=== PATIENT | male | born 1940 | race Caucasian/White ===

== ENCOUNTER 2019-05-26 06:31 | Outpatient (CLI) | payer MEDICARE ==
[2019-05-26 10:38] LABS: Hemoglobin 14.3 g/dL (14.0-18.0); Mean Corpuscular HGB CONC 33.7 g/dL (32.0-36.0); Mean Corpuscular Hemoglobin 32.6 pg (27.0-31.0); Mean Platelet Volume 7.3 fL (7.4-10.4); Platelet Count 181 thou/uL (130-400); RBC Distribution Width 12.3 % (11.5-14.5); White Blood Cell (WBC) Count 6.7 thou/uL (4.8-10.8)
[2019-05-26 10:44] LABS: PTT 38.3 SEC (22.9-36.1); Prothrombin Time 13.3 SEC (12.0-14.7)
[2019-05-26 10:46] LABS: Bacteria/HPF None Seen HPF (None Seen); Bilirubin Negative (Negative); Blood, Urine Negative (Negative); Clarity Clear (Clear); Glucose, Urine (Dipstick) Normal (Negative); Leukocyte Negative Leu/uL (Negative); Nitrite Negative (Negative); Protein, Urine (Dipstick) Negative (Neg-Trace); RBC/HPF 0-3 HPF (0-3); Squamous Epithelial None Seen HPF (0-3); Urobilinogen Normal mg/dL (Less than 2); WBC/HPF 0-3 HPF (0-3)
[2019-05-26 10:58] LABS: Anion Gap 9 mmol/L (10-20); BUN (Urea Nitrogen) 19 mg/dL (8.4-25.7); Calc. Creatinine Clearance 0 mL/min (70-130); Calcium 9.4 mg/dL (7.8-10.44); Carbon Dioxide 30 mmol/L (23-31); Chloride 105 mmol/L (98-107); Estimated GFR-MDRD 86; Glucose 95 mg/dL (83-110); Potassium 3.8 mmol/L (3.5-5.1); Sodium 140 mmol/L (136-145)
== END 2019-05-26 06:32 | disposition home or self-care (01) ==
LOC: LABBT 06:31
PROVIDERS: ATTEND Urology
DX: Z01.818 Encounter for other preprocedural examination (principal); N40.0 Benign prostatic hyperplasia without lower urinary tract symptoms
CPT/HCPCS: 80048; 81001; 85027; 85610; 85730; 87086; 93005; 93010

== ENCOUNTER 2019-06-02 07:15 | Day surgery (SDC) | payer MEDICARE ==
[2019-05-26 09:29] VITALS: BMI 24.7
[2019-06-02] MEDS ORDERED: Levofloxacin 500 mg/D5W 100 ml Premix Bag ONE (08:08)
[2019-06-02] MEDS ORDERED: Fentanyl 100 MCG/2 ML VIAL ONE (09:08)
[2019-06-02] MEDS ORDERED: Oxybutynin 5 MG TAB ONE (11:15)
[2019-06-02] MEDS ORDERED: Ketorolac Tromethamine 30 MG/ML VIAL ONE (11:15)
[2019-06-02] MEDS ORDERED: Phenazopyridine HCl 97.5 MG TABLET ONE (11:15)
--- NOTE | 2019-06-02 12:17 | OP ---
DATE OF PROCEDURE: 06/02/2019 PREOPERATIVE DIAGNOSIS: Enlarged prostate with lower urinary tract symptoms. POSTOPERATIVE DIAGNOSIS: Enlarged prostate with lower urinary tract symptoms. PROCEDURE PERFORMED: Transurethral prostatic lift device/UroLift. ANESTHESIA: TIVA. COMPLICATIONS: None. ESTIMATED BLOOD LOSS: 20 mL. DESCRIPTION OF PROCEDURE: After informed consent, the patient was taken to the operating room, transferred to the table on his own power. Anesthesia was established. A time-out was performed showing the correct patient, site, and procedure. Preoperative antibiotics were administered. He was prepped and draped in lithotomy position. A 20-[place] cystoscope was inserted into the bladder. The cystoscopy bridges were placed with UroLift delivery device. The first treatment site was the patient's left side approximately 2 cm distal to the bladder neck. The distal tip of the delivery device was then angled laterally approximately 20 degrees of this position to compress the lateral lobe. The trigger was pulled, thereby deploying a needle containing the implant through the prostate. The needle was then retracted, allowing one end of the implant to be delivered to the capsular surface of the prostate. The implant was intention to assure capsular seeding and removal of slack monofilament. The device was then angled back towards midline and slowly advanced proximally about 3 to 4 mm until cystoscopic verification of the monofilament being centered in the delivery bay. The urethral end piece was then affixed to the monofilament, thereby tailoring the size of the implant. Excess filament was then severed. The delivery device was then readvanced into the bladder. The delivery device was then replaced with the cystoscope and bridge and implant location and opening affect was confirmed cystoscopically. The same procedure was then repeated on the other side near the bladder neck deploying the second implant, two additional implants, the 3rd and 4th were delivered just proximal to the verumontanum. Again, one on the right and one on the left side of the prostate following the same technique. Cystoscopy then revealed possible persistent obstruction at the bladder neck. A 5th implant was delivered on the patient's left side, attempting to stack above the previously placed bladder neck implant on that side. Upon delivering the urethral end piece, I noted that this was within the bladder neck rather than distal to it. I then switched to a 23-[place]inean cystoscope and using a flexible grasper, removed this urethral end piece. I noted that the monofilament invaginated into the tissue and was no longer visible. I then re-examined the channel and decided at this point that no further implants were necessary. He had an excellent anterior channel with the irrigation turned off. The bladder was partially filled and then the scope removed. He was awoken from anesthesia, transferred back to his hospital bed and taken to PACU in stable condition. IMPLANT LOCATION SUMMARY: 1. Implant 1: Left proximal prostatic urethra. 2. Implant 2: Right proximal prostatic urethra. 3. Implant 3: Distal left prostatic urethra. 4. Implant 4: Right distal prostatic urethra. 5. Implant 5: Left proximal prostatic urethra/bladder neck. This implant was removed. CRITERIA: Met. The patient with no active UTI. Conservative management has failed and surgical intervention is indicated. IPSS 16/5, PVR 88. Job ID: [id number]
== END 2019-06-02 12:20 | disposition home or self-care (01) ==
LOC: SDC 07:15
PROVIDERS: ATTEND Urology
PROC: 0T7D8DZ Dilation of Urethra with Intraluminal Device, Via Natural or Artificial Opening Endoscopic (ICD-10-PCS; principal; 2019-06-02)
DX: N40.1 Benign prostatic hyperplasia with lower urinary tract symptoms (principal); E78.5 Hyperlipidemia, unspecified; N13.8 Other obstructive and reflux uropathy; I69.328 Other speech and language deficits following cerebral infarction; I25.10 Atherosclerotic heart disease of native coronary artery without angina pectoris; Z87.891 Personal history of nicotine dependence; Z95.5 Presence of coronary angioplasty implant and graft; Z79.82 Long term (current) use of aspirin; Z79.899 Other long term (current) drug therapy
CPT/HCPCS: C1889; J1885; J1956; J3010

== ENCOUNTER 2019-06-05 09:10 | Inpatient (IN) | payer MEDICARE ==
[2019-06-05 09:46] LABS: #Eosinphils 0.1 thou/uL (0.0-0.7); #Lymphocytes 0.9 thou/uL (1.20-3.40); #Monocytes 0.9 thou/uL (0.11-0.59); #Neutrophils 9.1 thou/uL (1.40-6.50); %Basophils 0.1 % (0.0-1.0); %Eosinophils 0.8 % (0.0-10.0); %Lymphocytes 7.8 % (21.0-51.0); %Monocytes 8.4 % (0.0-10.0); Hemoglobin 12.1 g/dL (14.0-18.0); Mean Corpuscular Hemoglobin 32.8 pg (27.0-31.0); Mean Corpuscular Volume 93.6 fL (78.0-98.0); Mean Platelet Volume 7.5 fL (7.4-10.4); Platelet Count 151 thou/uL (130-400); RBC Distribution Width 11.9 % (11.5-14.5); Red Blood Cell (RBC) Count 3.68 mill/uL (4.70-6.10); White Blood Cell (WBC) Count 10.9 thou/uL (4.8-10.8)
--- NOTE | 2019-06-05 09:59 | CT ---
CT BRAIN WITHOUT CONTRAST: Date: 06/05/19 HISTORY: Level I stroke. FINDINGS: Postop changes of bilateral parietal bur holes are again seen as on 01/01/17. There is an old infarct in the left basal ganglia. Changes of chronic small vessel ischemic disease in the periventricular w nany matter. The ventricular size is appropriate and the basilar cisterns are patent. No evidence of acute infarct, hemorrhage, midline shift, or abnormal extra-axial fluid collections ar e seen. No acute calvarial fracture is identified. The visualized paranasal sinuses and mastoid air c ells are well aerated. IMPRESSION: No CT evidence of acute intracranial process. Discussed over the telephone with ER physician, Dr. Lucian Pepper, at 0922 hours. CODE CR. POS: TPC
[2019-06-05 10:01] LABS: ALT (SGPT) 21 U/L (8-55); AST (SGOT) 55 U/L (5-34); Albumin 4.2 g/dL (3.4-4.8); Alkaline Phosphatase 64 U/L (40-110); Anion Gap 13 mmol/L (10-20); BUN (Urea Nitrogen) 37 mg/dL (8.4-25.7); Bilirubin, Total 0.9 mg/dL (0.2-1.2); CK (CPK) 1253 U/L (30-200); Calc. Creatinine Clearance 0 mL/min (70-130); Calcium 8.9 mg/dL (7.8-10.44); Carbon Dioxide 24 mmol/L (23-31); Chloride 93 mmol/L (98-107); Estimated GFR-MDRD 21; Globulin 2.4 g/dL (2.4-3.5); Glucose 128 mg/dL (83-110); Protein, Total 6.6 g/dL (5.8-8.1); Sodium 126 mmol/L (136-145)
--- NOTE | 2019-06-05 10:01 | CT ---
EXAM: CT angiogram of the head including 3-D rendering: HISTORY: Stroke alert COMPARISON: None FINDINGS: There is adequate opacification of the intracranial arteries. Visualized vertebral and basilar arteries: Unremarkable. Right and left intracranial internal carotid arteries: Unremarkable. Right and left Anterior and posterior cerebral arteries: Unremarkable. Right and left middle cerebral arteries: Unremarkable. No evidence for an M1 segment occlusion. No evidence for intracranial aneurysm. IMPRESSION: No significant major branch occlusion or stenosis. No evidence for intracranial aneurysm. EXAM: CT angiogram of the neck including 3-D rendering: HISTORY: Stroke alert COMPARISON: None FINDINGS: There is adequate opacification of the extracranial arterial tree. The origins of the right and left carotid and vertebral arteries demonstrate no significant stenosis. Right common, internal, and external carotid arteries:No evidence for significant stenosis or occlusi ve disease. Left common, internal, and external carotid arteries:There is some very mild narrowing of the upper i nternal carotid artery just caudal to the petrous bone. Right and left vertebral arteries and basilar artery:No significant stenosis or occlusion. Soft tissue neck demonstrates no evidence for significant adenopathy, mass, or abnormal fluid collect ion. IMPRESSION: No significant carotid, vertebral, or basilar artery stenosis or occlusive disease or other significa nt acute process. Findings were discussed with Dr. Pepper's nurse at 9:55 AM CODE CR
[2019-06-05 10:08] LABS: Bacteria/HPF 2+ HPF (None Seen); Bilirubin Negative (Negative); Blood, Urine 3+ (Negative); Clarity Turbid (Clear); Glucose, Urine (Dipstick) Normal (Negative); Leukocyte Negative Leu/uL (Negative); Nitrite Negative (Negative); Protein, Urine (Dipstick) 30 mg/dL (Neg-Trace); RBC/HPF Greater than 50 HPF (0-3); Squamous Epithelial 0-3 HPF (0-3); Urobilinogen Normal mg/dL (Less than 2); WBC/HPF 21-50 HPF (0-3)
--- NOTE | 2019-06-05 11:22 | RAD ---
PORTABLE CHEST 1 VIEW: Date: 06/05/19 Time: 1018 hours HISTORY: Altered mental status. FINDINGS: The heart size is normal. The lungs are well expanded without lobar consolidation, pneumothoraces, or pleural effusions. IMPRESSION: No acute process. POS: TPC
[2019-06-05] MEDS ORDERED: Iopamidol-370 76% 500 ML 1 ML ONE (11:37)
[2019-06-05 13:56] VITALS: BMI 26.5
[2019-06-05] MEDS ORDERED: Acetaminophen 325 MG TAB PO PRN (14:02)
[2019-06-05] MEDS ORDERED: Senokot S 8.6-50 MG TAB PO PRN (14:02)
[2019-06-05] MEDS ORDERED: Ondansetron PF 4 MG/2 ML Vial IVP PRN (14:02)
--- NOTE | 2019-06-05 15:55 | MRI ---
Brain MRI without contrast: 06/05/2019 COMPARISON: None HISTORY: Disorientation, altered mental status TECHNIQUE: Multiplanar multisequence MR imaging of the brain obtained without contrast. FINDINGS: There is subtle linear blooming artifact associated with the cortical surface of the anteri or aspect right frontal lobe suggesting the sequela of prior subdural hematoma. Head CT performed in 2017 demonstrated a subdural hematoma in this region. There is evidence of bilateral frontal ginger holes near the vertex. The diffusion weighted imaging demonstrates no evidence for acute infarction. Imaged paranasal sinuses and mastoid air cells are grossly unremarkable. Arterial flow voids at the a xial level of the skull base appear grossly unremarkable on the T2-weighted imaging. Multifocal periventricular, deep, and subcortical white matter T2 and FLAIR hyperintensity noted, zuly dence of small vessel disease. IMPRESSION: Chronic findings as above. No MR evidence of acute infarction.
[2019-06-05] MEDS: Sodium Chloride 0.9% 1,000 ML IV SCH (17:02)
[2019-06-05] MEDS: Heparin 5,000 UNITS/ML VIAL SC SCH ×2 (17:02→20:58)
[2019-06-05] MEDS: cefTRIAXone\\ROCEPHIN 1 GM in Sodium Chloride 0.9% 100 ML IVPB SCH (17:37)
--- NOTE | 2019-06-05 20:32 | HP ---
PRESENTING COMPLAINT: Confusion. HISTORY OF PRESENT ILLNESS: The patient with past medical history of benign prostatic hypertrophy, history of CVA with left putaminal ischemic stroke, coronary artery disease status post stenting, history of renal artery stenosis status post stenting, hyperlipidemia, history of subdural hematoma. The patient is status post transurethral prostatic lift device, UroLift performed on 06/02/2019, and the patient presented today this morning, as per , the patient was confused and was not able to read words and these were the symptoms which he had before previous stroke and he was getting off-balance and was holding to gerardo and she denied any focal weakness, denied any slurred speech or headache, and she suspected that the patient maybe got stroke. Denies any chest pain or shortness of breath. The patient complains of increased frequency of urination, which got after UroLift procedure. The patient also found to be having increased creatinine, being admitted for possible acute kidney injury, mild UTI, and possible TIA/stroke workup. Initial CAT scan performed in the emergency room was negative. SYSTEMIC REVIEW: As mentioned above. PAST MEDICAL HISTORY: As mentioned above. PAST SURGICAL HISTORY: 1. History of UroLift procedure on 06/02/2019. 2. History of LASIK in 1994. 3. Elbow surgery. 4. Coronary stent placement. 5. Renal artery stenosis, stent placement. FAMILY HISTORY: Diabetes mellitus and coronary artery disease. SOCIAL HISTORY: Denies smoking, alcohol abuse, or drug abuse. ALLERGIES: NKDA. MEDICATION LIST: Aspirin and other medications. PHYSICAL EXAMINATION: VITAL SIGNS: Temperature 97.7, pulse 66, respiration 20, oxygen saturation 98%. Blood pressure 159/72. GENERAL: The patient is lying in bed comfortably, not in distress. HEENT: Conjunctivae are normal. Oral mucosa moist. NECK: Supple. No JVD. No lymphadenopathy. CHEST: Normal work of breathing. No rhonchi. No wheezing. HEART: Sound normal. No murmur. No gallop or rub. ABDOMEN: Soft, benign, nontender. No visceromegaly. EXTREMITIES: Negative edema of feet. No rash. No cyanosis. NEUROLOGIC: Cranial nerve grossly intact. Power 5/5 in bilateral upper and lower extremities. Coordination intact. LABORATORY DATA: CBC unremarkable. BMP unremarkable except sodium of 126, creatinine 2.87, glucose 128. CPK 1253, troponin 0.017. TSH 1.3520. UA; white blood cells 21 to 50, urine rbc's greater than 50. CT [place], negative. Brain CT, negative for acute findings. X-ray chest, no acute process. IMPRESSION: 1. Confusion with off-balance and word reading difficulty. We will admit to rule out transient ischemic attack versus stroke. We will get an MRI brain. Tele monitoring, neuro checks. We will get a Speech PT, OT evaluation. We will continue aspirin, which he takes at home. If MRI is positive, we will get Neurology evaluation. 2. Acute encephalopathy, possible multifactorial, possible related to acute renal failure with hyponatremia and possible mild urinary tract infection. We will continue to monitor mental status. As per , the patient is more confused than usual. 3. Acute kidney injury. The patient has performed UroLift procedure on 06/02/[address] Barnes has been consulted from the ED physician, who requested followup. We will continue to monitor BMP. If the patient has worsening kidney functions, we will get Nephrology evaluation. 4. Hyponatremia. We will continue fluid monitoring in the morning. 5. History of coronary artery disease. Currently denies any chest pain. Continue home medication. 6. History of renal artery stenosis. 7. Advanced directive discussed with the patient and . The patient is a full code. Job ID: [id number]
[2019-06-05] MEDS: Famotidine 20 MG TAB PO SCH (20:58)
[2019-06-06] MEDS: Sodium Chloride 0.9% 1,000 ML IV SCH ×2 (04:23→14:03)
[2019-06-06 05:15] LABS: #Eosinphils 0.1 thou/uL (0.0-0.7); #Lymphocytes 0.9 thou/uL (1.20-3.40); #Monocytes 0.6 thou/uL (0.11-0.59); #Neutrophils 4.3 thou/uL (1.40-6.50); %Basophils 0.5 % (0.0-1.0); %Eosinophils 1.4 % (0.0-10.0); %Lymphocytes 14.5 % (21.0-51.0); %Monocytes 10.6 % (0.0-10.0); %Neutrophils 73.1 % (42.0-75.0); Hemoglobin 10.2 g/dL (14.0-18.0); Mean Corpuscular HGB CONC 34.8 g/dL (32.0-36.0); Mean Platelet Volume 7.4 fL (7.4-10.4); Platelet Count 130 thou/uL (130-400); Red Blood Cell (RBC) Count 3.08 mill/uL (4.70-6.10); White Blood Cell (WBC) Count 5.9 thou/uL (4.8-10.8)
[2019-06-06 05:37] LABS: ALT (SGPT) 17 U/L (8-55); AST (SGOT) 45 U/L (5-34); Albumin 3.3 g/dL (3.4-4.8); Alkaline Phosphatase 51 U/L (40-110); Anion Gap 9 mmol/L (10-20); BUN (Urea Nitrogen) 22 mg/dL (8.4-25.7); Bilirubin, Total 0.5 mg/dL (0.2-1.2); Calc. Creatinine Clearance 48 mL/min (70-130); Calcium 8.2 mg/dL (7.8-10.44); Carbon Dioxide 26 mmol/L (23-31); Cardiac Risk 2.1 (Less than 4.5); Chloride 107 mmol/L (98-107); Cholesterol 104 mg/dl (< 200 Desired); Estimated GFR-MDRD 50; Glucose 90 mg/dL (83-110); HDL Cholesterol 50 mg/dL (>60 Neg Risk); LDL Cholesterol, Calculated 43 mg/dL; Potassium 3.7 mmol/L (3.5-5.1); Protein, Total 5.3 g/dL (5.8-8.1); Sodium 138 mmol/L (136-145); Triglycerides 55 mg/dL (Less than 150)
[2019-06-06] MEDS: Aspirin 81 mg Enteric Coated Tablet PO SCH (08:29)
[2019-06-06] MEDS: Heparin 5,000 UNITS/ML VIAL SC SCH ×3 (08:29→20:57)
[2019-06-06] MEDS ORDERED: traMADol HCl 50 MG TAB PO PRN (12:47)
--- NOTE | 2019-06-06 12:50 | PDOC.HOSPP ---
- Subjective Encounter Date: 06/06/19 Encounter Time: 10:00 Subjective: no sob or abd pain at bedside oriented well has ambulated with PT in hallway - Objective Vital Signs & Weight: Vital Signs (12 hours) Temp Pulse Pulse Pulse Resp BP BP 06/06/19 11:35 99.3 F 54 L 20 06/06/19 10:14 58 L 55 L 124/58 L 128/58 L 06/06/19 08:32 06/06/19 07:18 98.4 F 58 L 20 06/06/19 04:00 97.7 F 63 16 BP Pulse Ox 06/06/19 11:35 116/57 L 99 06/06/19 10:14 06/06/19 08:32 95 06/06/19 07:18 115/53 L 95 06/06/19 04:00 112/54 L 94 L Weight Weight 169 lb 2.994 oz I&O: 06/05/19 06/06/19 06/07/19 06:59 06:59 06:59 Intake Total 800 Output Total 4100 1700 Balance -4100 -900 Result Diagrams: 06/06/19 04:36 06/06/19 04:36 Hospitalist ROS - Medication Medications: Active Medications Generic Name Dose Route Start Last Admin Trade Name Freq PRN Reason Stop Dose Admin Aspirin 81 mg 06/06/19 09:00 06/06/19 08:29 Ecotrin PO 81 mg DAILY MANOJ Administration Famotidine 20 mg 06/05/19 21:00 06/05/19 20:58 Pepcid PO 20 mg HS MANOJ Administration Heparin Sodium (Porcine) 5,000 units 06/05/19 15:00 06/06/19 08:29 Heparin SC Not Given TID MANOJ Sodium Chloride 1,000 mls @ 100 mls/hr 06/05/19 14:15 06/06/19 04:23 Normal Saline 0.9% IV 1,000 mls .Q10H MANOJ Administration Ceftriaxone Sodium 1 gm/ 100 mls @ 200 mls/hr 06/05/19 15:00 06/05/19 17:37 Sodium Chloride IVPB 100 mls 1500 MANOJ Administration - Exam General Appearance: NAD, awake alert Eye: PERRL, anicteric sclera ENT: no oropharyngeal lesions, moist mucosa Neck: supple, no JVD Heart: RRR, no murmur Respiratory: no wheezes, no rales Gastrointestinal: soft, non-tender, non-distended, normal bowel sounds Gastrointestinal - other findings: monge+ dark urine Extremities: no cyanosis, no edema Neurological: cranial nerve grossly intact, no focal deficits Psychiatric: A&O x 3 Hosp A/P (1) Urine retention Code(s): R33.9 - RETENTION OF URINE, UNSPECIFIED Status: Acute (2) [place] (acute kidney injury) Code(s): N17.9 - ACUTE KIDNEY FAILURE, UNSPECIFIED Status: Acute (3) UTI (urinary tract infection) Status: Suspected Qualifiers: Urinary tract infection type: acute cystitis Hematuria presence: without hematuria Qualified Code(s): N30.00 - Acute cystitis without hematuria (4) CAD (coronary artery disease) Code(s): I25.10 - ATHSCL HEART DISEASE OF [place] CORONARY ARTERY W/O ANG PCTRS Status: Chronic Qualifiers: Coronary Disease-Associated Artery/Lesion type: [place] artery [place] vs. transplanted heart: [place] heart Associated angina: without angina Qualified Code(s): I25.10 - Atherosclerotic heart disease of [place] coronary artery without angina pectoris (5) h/o subdural hematoma Status: Chronic (6) H/O: CVA (cerebrovascular accident) Code(s): Z86.73 - PRSNL HX OF TIA (TIA), AND CEREB INFRC W/O RESID DEFICITS Status: Chronic (7) BPH (benign prostatic hyperplasia) Code(s): N40.0 - BENIGN PROSTATIC HYPERPLASIA WITHOUT LOWER URINRY TRACT SYMP Status: Chronic Qualifiers: Lower urinary tract symptom presence: symptoms present Lower urinary tract symptom detail: urinary retention Qualified Code(s): N40.1 - Benign prostatic hyperplasia with lower urinary tract symptoms; R33.8 - Other retention of urine (8) Dyslipidemia Code(s): E78.5 - HYPERLIPIDEMIA, UNSPECIFIED Status: Chronic (9) h/o renal artery stent Status: Chronic (10) Rhabdomyolysis Code(s): M62.82 - RHABDOMYOLYSIS Status: Acute Qualifiers: Rhabdomyolysis type: non-traumatic Qualified Code(s): M62.82 - Rhabdomyolysis (11) Chronic anemia Code(s): D64.9 - ANEMIA, UNSPECIFIED Status: Chronic - Plan gentle iv hydration, renal function is slowly trending down to baseline await cultures had recent urolift procedure done by for BPH on 06/02 with expected mild hematuria continue asp, ceftriaxone, zocor, flomax, oxybutynin has monge cath, likely will go home with it and f/u with as outpt hemostable no signs or symptoms of cva d/w patient and at bedside
[2019-06-06] MEDS: cefTRIAXone\\ROCEPHIN 1 GM in Sodium Chloride 0.9% 100 ML IVPB SCH (14:04)
[2019-06-06] MEDS: Oxybutynin 5 MG TAB PO SCH ×2 (14:04→20:56)
[2019-06-06] MEDS: Famotidine 20 MG TAB PO SCH (20:57)
[2019-06-06] MEDS ORDERED: Atorvastatin Calcium 10 MG TAB PO SCH (21:00)
[2019-06-07] MEDS: Sodium Chloride 0.9% 1,000 ML IV SCH (01:47)
[2019-06-07] MEDS ORDERED: Vit A,C & E/Lutein/Minerals Tablet PO SCH (09:00)
[2019-06-07] MEDS ORDERED: Tamsulosin HCl 0.4 MG CAP PO SCH (09:00)
[2019-06-07] MEDS: Heparin 5,000 UNITS/ML VIAL SC SCH (09:26)
[2019-06-07] MEDS: Aspirin 81 mg Enteric Coated Tablet PO SCH (09:27)
[2019-06-07] MEDS: Oxybutynin 5 MG TAB PO SCH (09:27)
[2019-06-07 11:45] VITALS: BP 145/64; TEMP 99.1
--- NOTE | 2019-06-07 14:16 | DIS ---
DATE OF ADMISSION: 06/05/2019 DATE OF DISCHARGE: 06/07/2019 DISCHARGE DISPOSITION: To home. PRIMARY DISCHARGE DIAGNOSES: 1. Urinary retention. 2. Acute kidney injury. 3. Urinary tract infection. SECONDARY DISCHARGE DIAGNOSES: 1. Coronary artery disease. 2. History of prior cerebrovascular accident. 3. History of subdural hematoma in the past. 4. Benign prostatic hypertrophy with recent UroLift procedure done by Dr. Barnes. 5. Dyslipidemia. 6. Mild rhabdomyolysis. 7. History of renal artery stent. 8. Chronic anemia. PROCEDURES DONE DURING HOSPITALIZATION: The patient has had CT brain without contrast done showed no acute intracranial process. There are postoperative changes of bilateral parietal ginger holes. There is old infarct in the left basal ganglia. CT angio of brain done showed no significant carotid, vertebral, or basilar artery stenosis or occlusive disease seen. MRI brain showed no acute infarct. There are sequelae of prior subdural hematoma in the right frontal lobe area. There is also evidence of small vessel disease. Echo with 2D Doppler showed EF of 60% to 65%. Blood cultures x2, no growth. Urine culture, no growth. White count of 5.9, H and H of 10 and 29, platelet count 130, MCV is 95 with 73% neutrophils. BUN 22, creatinine 1.3 on the day of discharge, and albumin 3.3. LDL 43, total cholesterol 104, and triglycerides 55. TSH 1.35. Initial BUN and creatinine were 37 and 2.8. Sodium was 126 on the day of admission. CK levels were 1253 on the day of admission. DISCHARGE MEDICATIONS: 1. Aspirin 81 mg p.o. daily. 2. Calcium carbonate 500 mg daily. 3. Zocor 20 mg p.o. at bedtime. 4. Ultram p.r.n. 5. Ciprofloxacin 250 mg p.o. twice daily for a week. 6. Ditropan 5 mg p.o. 3 times daily. 7. Phenazopyridine 100 mg p.o. 3 times daily. 8. Flomax 0.4 mg p.o. daily. ALLERGIES: NO KNOWN DRUG ALLERGIES. DISCHARGE PLAN: The patient to follow up with Dr. Barnes in 1 week. He has a scheduled appointment on June 17. His will call his office to see if he can come in early. He needs follow up with his primary care physician, Ms. Tamar Taylor, in 1 week. BRIEF COURSE DURING HOSPITALIZATION: The patient initially was brought to emergency room on the with complaints of frequent urination, confusion and on arrival had urinary retention as well. The patient had Hernandez catheter placed in the emergency room per Dr. Barnes's advice. He has had recent UroLift procedure done on by Dr. Barnes for BPH. The patient had acute kidney injury and had acute metabolic encephalopathy. He was gently hydrated during his stay and was on IV antibiotics, which has been switched over to ciprofloxacin, lower dose in view of his acute kidney injury on arrival. He has ambulated in the hallway. He is eating well prior to discharge. The patient is being discharged with indwelling Hernandez catheter with a thigh bag to follow up with Dr. Barnes within a week. He is hemodynamically stable and will be shortly discharged home. Please note, his urine and blood cultures have been negative. Likely, this is due to the patient being on Bactrim prior to arrival here. Please note, I have seen and examined the patient on the day of discharge. Please fax a copy of this discharge summary to 's office. Job ID: [id number] MTDD
--- NOTE | 2019-06-09 00:51 | PQF ---
KAROL LEARY VINAYA KUMAR MD [id number] [facility] [id number] [id number] CLINICAL DOCUMENTATION CLARIFICATION FORM: POST DISCHARGE Addendum to original discharge summary date: ____ Late entry note date: __ DATE: 06/09/19 ATTN: Christin Zarate Please exercise your independent, professional judgment in responding to the clarification form. Clinical indicators are provided on the bottom of this form for your review Please check appropriate box(s): [ ] Acute cystitis is a complication of transurethral prostatic lift device [ x ] Acute cystitis is not a complication of transurethral prostatic lift device [ ] Other condition, please specify: [ ] Unable to determnine In addition, please specify: Present on Admission (POA): [ ] Yes [ ] No [ ] Unable to determine CLINICAL INDICATORS - SIGNS / SYMPTOMS / LABS H&P p1 06/05 Dr Trevizo Pt underwent transurethral prostatic lift device, Uro Lift performed on 06/02 H&P p1 06/05 Dr Trevizo Pt was confused and was not able to read words and these were the symptoms which he had before previous stroke H&P p2 06/05 Dr Trevizo Acute Encephalopathy, possible multifactorial, possible related to acute renal failure and hyponatremia and possible UTI Hospitalist PN p3 06/06 Urinary retention with Acute Cystitis RISK FACTORS H&P p1 06/05 S/p Transurethral prostatic lift device H&P p1 06/05 HENRIET[place] H&P p1 06/05 Mild UTI H&P p1 06/05 BPH TREATMENT: SEP 22 IV Rocephin H&P p2 06/05 Monitor BMP H&P p2 06/05 Monitor mental status Hospitalist PN p5 Hernandez insertion (This form is maintained as a part of the permanent medical record) 2014 [employer]. All Rights Reserved [email or web address] [not provided] MTDD
== END 2019-06-07 13:49 | disposition home or self-care (01) | DRG 682 ==
LOC: ERS 09:10 → 2SE 13:39
PROVIDERS: ADMIT Emergency Medicine; ATTEND Emergency Medicine
DX: N17.9 Acute kidney failure, unspecified (principal); G93.41 Metabolic encephalopathy; M62.82 Rhabdomyolysis; E87.1 Hypo-osmolality and hyponatremia; N30.01 Acute cystitis with hematuria; I25.10 Atherosclerotic heart disease of native coronary artery without angina pectoris; E78.5 Hyperlipidemia, unspecified; N40.1 Benign prostatic hyperplasia with lower urinary tract symptoms; R33.8 Other retention of urine; D64.9 Anemia, unspecified; Z86.73 Personal history of transient ischemic attack (TIA), and cerebral infarction without residual deficits; Z79.82 Long term (current) use of aspirin; Z95.828 Presence of other vascular implants and grafts; Z95.5 Presence of coronary angioplasty implant and graft; Z79.899 Other long term (current) drug therapy
CPT/HCPCS: 36415; 36416; 70450; 70496; 70498; 70551; 71045; 80053; 80061; 81003; 81015; 82140; 82550; 83605; 84443; 84484; 85025; 87040; 87086; 93005; 93306; J0696; J1644; J3490; Q9967